=== PATIENT | female | born 1940 | race Caucasian/White ===

== ENCOUNTER 2019-04-04 06:43 | Observation (INO) | payer MEDICARE ==
[~2019-04-04] VITALS: Ht 152.4 cm; Wt 54.5 kg
[2019-04-04] MEDS ORDERED: SODIUM CHLORIDE 0.9% 1,000 ML IV SCH (07:04)
[2019-04-04 07:10] VITALS: BP 150/76
[2019-04-04] MEDS ORDERED: BIOT25005 PO (07:24)
[2019-04-04] MEDS ORDERED: MIDAZOLAM 1 MG/ML, 2ML ONE (07:24)
[2019-04-04] MEDS ORDERED: LOVA40TA2 PO (07:24)
[2019-04-04] MEDS ORDERED: ATOR40TA78 PO (07:24)
[2019-04-04] MEDS ORDERED: FENTANYL PF 100 MCG/2ML ONE ×2 (07:24→09:10)
[2019-04-04] MEDS ORDERED: METF500T17 PO (07:24)
[2019-04-04] MEDS ORDERED: ESTR0.5T PO (07:24)
[2019-04-04] MEDS ORDERED: APIX5TAB PO (07:24)
[2019-04-04] MEDS ORDERED: HEMP EXTRACT PO (07:24)
[2019-04-04] MEDS ORDERED: METO-93 PO (07:24)
[2019-04-04] MEDS ORDERED: OMEP-110 PO (07:24)
[2019-04-04] MEDS ORDERED: MONT10TA9 PO (07:24)
[2019-04-04] MEDS ORDERED: FLUT1DIS IH (07:24)
[2019-04-04] MEDS ORDERED: MEDR2.5T30 PO (07:24)
[2019-04-04] MEDS ORDERED: POTA99TA2 PO (07:24)
[2019-04-04] MEDS ORDERED: CHOL100012 PO (07:24)
[2019-04-04] MEDS ORDERED: LIDOCAINE 1%, 20ML ONE (07:25)
[2019-04-04] MEDS ORDERED: ISOPROTERENOL 0.2MG/ML, 5ML ONE (07:25)
[2019-04-04] MEDS ORDERED: ADENOSINE 6 MG/2 ML ONE (07:25)
[2019-04-04] MEDS ORDERED: MIDAZOLAM 1 MG/ML, 5ML ONE (09:10)
[2019-04-04] MEDS ORDERED: FENTANYL PF 250 MCG/5ML ONE (09:53)
[2019-04-04] MEDS ORDERED: SUCCINYLCHOLINE 20 MG/ML, 10ML ONE (09:53)
[2019-04-04] MEDS ORDERED: PROPOFOL 10 MG/ML, 20ML ONE (09:53)
[2019-04-04] MEDS ORDERED: ROCURONIUM 10MG/ML,5ML ONE (09:53)
[2019-04-04] MEDS ORDERED: PHENYLEPHRINE 10 MG/ML ONE (10:25)
[2019-04-04] MEDS ORDERED: DEXAMETHASONE 4 MG/ML, 1ML ONE (10:30)
[2019-04-04] MEDS ORDERED: ONDANSETRON 2MG/ML, 2ML ONE (10:30)
[2019-04-04] MEDS ORDERED: EPHEDRINE 50 MG/ML, 1ML IVPush PRN (13:30)
[2019-04-04] MEDS ORDERED: FENTANYL PF 100 MCG/2ML IV PRN (13:30)
[2019-04-04] MEDS ORDERED: PROMETHAZINE 25 MG/ML, 1ML IV PRN (13:30)
[2019-04-04] MEDS ORDERED: ONDANSETRON 2MG/ML, 2ML IV PRN (13:30)
[2019-04-04] MEDS ORDERED: DIPHENHYDRAMINE 50 MG/ML, 1ML IVPush PRN (13:30)
[2019-04-04] MEDS ORDERED: ONDANSETRON ODT 8 MG PO PRN (13:30)
[2019-04-04] MEDS ORDERED: hydrALAzine 20 MG/ML, 1ML IV PRN (13:30)
[2019-04-04] MEDS ORDERED: FLUTICASONE IH PRN (13:30)
[2019-04-04] MEDS ORDERED: MIDAZOLAM 1 MG/ML, 2ML IV PRN (13:30)
[2019-04-04] MEDS ORDERED: SALMETEROL IH PRN (13:30)
[2019-04-04] MEDS ORDERED: MORPHINE SULFATE 4 MG/ML, 1ML IVPush PRN (13:30)
[2019-04-04] MEDS ORDERED: ACETAMINOPHEN 325 MG TABLET PO PRN (13:30)
[2019-04-04] MEDS ORDERED: METOPROLOL 1 MG/ML, 5ML IV PRN (13:30)
[2019-04-04] MEDS ORDERED: OXYcodone 5 MG/5 ML ORAL.SOL UDC PO PRN (13:30)
[2019-04-04] MEDS ORDERED: EPHEDRINE 50 MG/ML, 1ML IM PRN (13:30)
[2019-04-04] MEDS ORDERED: APIXABAN 5 MG TABLET ONE (14:28)
[2019-04-04] MEDS: APIXABAN 5 MG TABLET PO SCH ×2 (14:30→21:03)
[2019-04-04 15:01] VITALS: BP 125/59
[2019-04-04] MEDS: ACETAMINOPHEN 325 MG TABLET PO PRN (15:30)
[2019-04-04 19:10] VITALS: BP 99/62
[2019-04-04] MEDS ORDERED: LOVASTATIN 40 MG TABLET PO SCH (21:00)
[2019-04-04] MEDS ORDERED: ATORVASTATIN 40 MG TABLET PO SCH (21:00)
[2019-04-04] MEDS ORDERED: APIXABAN 5 MG TABLET PO SCH ×2 (21:00)
[2019-04-04] MEDS: metFORMIN 500 MG TABLET PO SCH (21:03)
[2019-04-05 02:14] VITALS: BP 93/54
[2019-04-05 08:00] VITALS: BP 122/66
[2019-04-05] MEDS: metFORMIN 500 MG TABLET PO SCH (08:40)
[2019-04-05] MEDS: ACETAMINOPHEN 325 MG TABLET PO PRN (08:40)
[2019-04-05] MEDS: APIXABAN 5 MG TABLET PO SCH (08:40)
[2019-04-05] MEDS ORDERED: MEDROXYPROGESTERONE ACETATE 2.5 MG TABLET PO SCH (09:00)
[2019-04-05] MEDS ORDERED: TEMPLATE NON-FORMULARY MED. (Biotin** 10,000 MG) PO SCH (09:00)
[2019-04-05] MEDS ORDERED: POTASSIUM GLUCONATE PO SCH (09:00)
[2019-04-05] MEDS ORDERED: METOPROLOL SUCCINATE 50 MG TAB.ER.24H PO SCH (09:00)
[2019-04-05] MEDS ORDERED: HEMP EXTRACT PO SCH (09:00)
[2019-04-05] MEDS ORDERED: MONTELUKAST 10 MG TABLET PO SCH (09:00)
[2019-04-05] MEDS ORDERED: OMEPRAZOLE 20 MG CAPSULE.DR PO SCH (09:00)
[2019-04-05] MEDS ORDERED: ESTRADIOL 0.5 MG TABLET PO SCH (09:00)
[2019-04-05] MEDS ORDERED: CHOLECALCIFEROL 1,000 UNIT TABLET PO SCH (09:00)
[2019-04-05] MEDS ORDERED: KETOROLAC 30 MG/1 ML IV ONE (10:00)
[2019-04-05 12:34] VITALS: BP 117/57
== END 2019-04-05 15:45 | disposition home or self-care (01) ==
LOC: CACL 06:43 → EDBD 08:00 → ORIP 13:03 → 5SO 14:52 → DCLOUNGE 04-05 15:38
PROVIDERS: ADMIT Internal Medicine Cardiovascular Disease; ATTEND Internal Medicine Cardiovascular Disease
DX: I48.91 Unspecified atrial fibrillation (principal); I48.4 Atypical atrial flutter; Z79.01 Long term (current) use of anticoagulants
CPT/HCPCS: 0399T; 85347; 93005; 93306; 93613; 93623; 93655; 93656; 93662; 96374; 99156; 99157; C1730; C1732; C1759; C1766; C1893; C1894; G0378; J0153; J0330; J1100; J1885; J2250; J2370; J2405; J2704; J3010; J3490